=== PATIENT | male | born 1995 | race American Indian/Alaskan Native ===

== ENCOUNTER 2016-07-14 15:24 | Emergency (ER) | payer OTHER ==
[2016-07-14] MEDS ORDERED: MOTRIN PO ONE (18:59)
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
[2016-07-14 20:32] VITALS: BP 134/89
== END 2016-07-14 20:31 | disposition home or self-care (01) ==
LOC: ED 15:24
DX: S13.4XXA Sprain of ligaments of cervical spine, initial encounter (principal); R51 Headache; F12.10 Cannabis abuse, uncomplicated; F17.200 Nicotine dependence, unspecified, uncomplicated; V89.2XXA Person injured in unspecified motor-vehicle accident, traffic, initial encounter; Y93.9 Activity, unspecified; Y99.9 Unspecified external cause status; Y92.410 Unspecified street and highway as the place of occurrence of the external cause
CPT/HCPCS: 70486; 99284